=== PATIENT | male | born 1990 | race Asian ===

== ENCOUNTER 2019-10-04 14:08 | Emergency (ER) | payer OTHER ==
[~2019-10-04] VITALS: Ht 177.8 cm; Wt 65.8 kg
[2019-10-04 14:34] VITALS: BP 102/67
[2019-10-04] MEDS ORDERED: NAPROXEN250 MG ORAL (14:58)
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
[2019-10-04 15:03] VITALS: BP 102/67
[2019-10-04 15:05] VITALS: BP 102/67
== END 2019-10-04 15:05 | disposition home or self-care (01) ==
LOC: EMR 14:56
DX: S40.012A Contusion of left shoulder, initial encounter (principal); J45.909 Unspecified asthma, uncomplicated; V43.52XA Car driver injured in collision with other type car in traffic accident, initial encounter; Y92.411 Interstate highway as the place of occurrence of the external cause
CPT/HCPCS: 99282